=== PATIENT | male | born 1955 | race Caucasian/White ===

== ENCOUNTER 2024-09-23 19:46 | Inpatient (IN) | payer BC, MEDICARE ==
[2024-09-23 21:56] VITALS: BMI 30.2
[2024-09-23] MEDS ORDERED: Senokot S 8.6-50 MG TAB PO PRN (22:51)
[2024-09-23] MEDS ORDERED: Acetaminophen 325 MG TAB PO PRN (22:51)
[2024-09-23] MEDS ORDERED: cefTRIAXone Sodium 1 MG in Syringe 0 ML IVPB SCH (23:00)
[2024-09-23] MEDS: metFORMIN 500 MG TAB PO SCH (23:24)
[2024-09-23] MEDS: Losartan 50 MG TAB PO SCH (23:25)
[2024-09-23] MEDS: rOPINIRole HCl 1 MG TAB PO SCH (23:25)
[2024-09-23] MEDS: cefTRIAXone\\ROCEPHIN 1 GM in Sodium Chloride 0.9% 100 ML IVPB SCH (23:25)
[2024-09-23] MEDS: Nicotine 21 MG PATCH TD SCH (23:26)
[2024-09-23] MEDS ORDERED: Ventolin HFA Inhaler 60 PUFF INHALER INH PRN (23:36)
[2024-09-24] MEDS: Azithromycin 500 MG in Sodium Chloride 0.9% 250 ML 250 ML IVPB SCH (00:34)
[2024-09-24] MEDS: Arformoterol 15 MCG/2 ML NEB NEB SCH ×2 (00:55→07:32)
[2024-09-24] MEDS: Ipratropium/Albuterol 3 ML NEB NEB SCH (01:30)
[2024-09-24] MEDS ORDERED: Glucagon 1 MG/ML KIT IM PRN (02:41)
[2024-09-24] MEDS ORDERED: Dextrose 50% Abboject 50 ML SYRINGE SLOW IVP PRN (02:41)
[2024-09-24] MEDS ORDERED: Dextrose 5% in Water 1,000 ML IV PRN (02:41)
[2024-09-24 05:39] LABS: Anion Gap 17 mmol/L (10-20); BUN (Urea Nitrogen) 17 mg/dL (8.4-25.7); Calc. Creatinine Clearance 95 mL/min (70-130); Calcium 9.4 mg/dL (7.8-10.44); Carbon Dioxide 25 mmol/L (23-31); Chloride 99 mmol/L (98-107); Estimated GFR 80; Glucose 82 mg/dL (80-115); Magnesium 1.9 mg/dL (1.6-2.6); Potassium 4.3 mmol/L (3.5-5.1); Sodium 137 mmol/L (136-145)
[2024-09-24 05:54] LABS: #Basophils 0.02 10x3/uL (0.0-0.2); #Eosinophils 0.03 10x3/uL (0.0-0.5); #Monocytes 0.56 10x3/uL (0.0-1.1); #Neutrophils 5.79 10x3/uL (1.5-8.4); %Basophils 0.3 % (0.0-2.0); %Eosinophils 0.4 % (0.0-6.0); %Lymphocytes 9.9 % (18.0-47.0); %Monocytes 7.8 % (0.0-10.0); Hematocrit 41.3 % (38.8-50.0); Hemoglobin 14.5 g/dL (13.5-17.5); Mean Corpuscular HGB CONC 35.1 g/dL (32.0-36.0); Mean Corpuscular Hemoglobin 33.3 pg (27.0-33.0); Mean Corpuscular Volume 94.9 fL (81.2-95.1); Mean Platelet Volume 9.5 fL (7.4-10.4); Platelet Count 150 10x3/uL (150-450); RBC Distribution Width 13.8 % (11.5-14.5); Red Blood Cell (RBC) Count 4.35 10x6/uL (4.32-5.72)
[2024-09-24] MEDS: Budesonide 0.5 MG/2 ML NEB INH SCH (07:33)
[2024-09-24] MEDS: Azithromycin 500 MG in Syringe 0 ML IVPB SCH (07:37)
[2024-09-24] MEDS: cefTRIAXone Sodium 1,000 MG in Syringe 0 ML IVPB SCH (07:37)
[2024-09-24] MEDS: Enoxaparin 40 MG (0.4 mL) SYRINGE SC SCH (08:35)
[2024-09-24] MEDS: Gemfibrozil 600 MG TAB PO SCH (08:37)
[2024-09-24] MEDS: NIFEdipine XL 60 MG ER.TAB PO SCH (08:37)
[2024-09-24] MEDS: metFORMIN 500 MG TAB PO SCH (08:38)
[2024-09-24] MEDS: guaiFENesin ER 600 MG TAB PO SCH (08:38)
[2024-09-24] MEDS: Fish Oil 1,000 MG CAP PO SCH (08:39)
[2024-09-24] MEDS: cefTRIAXone\\ROCEPHIN 2 GM in Sodium Chloride 0.9% 100 ML IVPB SCH (08:40)
[2024-09-24] MEDS: predniSONE 20 MG TAB PO SCH (08:46)
[2024-09-24] MEDS: methylPREDNISolone Sod Succ 40 MG VIAL IVP SCH (12:44)
[2024-09-24] MEDS: rOPINIRole HCl 1 MG TAB PO SCH (21:36)
[2024-09-24] MEDS: Atorvastatin Calcium 20 MG TAB PO SCH (21:36)
[2024-09-24] MEDS: Cholecalciferol (Vitamin D3) 400 UNITS TAB PO SCH (21:36)
[2024-09-24] MEDS: Losartan 50 MG TAB PO SCH (21:37)
[2024-09-24] MEDS: Nicotine 21 MG PATCH TD SCH (21:37)
[2024-09-24] MEDS: Insulin Lispro 100 UNIT/ML 10 ML VIAL SC PRN (22:28)
[2024-09-26 07:55] VITALS: BP 151/65; TEMP 97.5
== END 2024-09-26 10:45 | disposition home or self-care (01) | DRG 189 ==
LOC: CSHTELE 21:31 → UNDOADMIN 21:31 → CSHTELE 09-24 10:21
PROVIDERS: ADMIT Internal Medicine; ATTEND Internal Medicine
DX: J96.01 Acute respiratory failure with hypoxia (principal); J44.1 Chronic obstructive pulmonary disease with (acute) exacerbation; E11.9 Type 2 diabetes mellitus without complications; I10 Essential (primary) hypertension; E78.5 Hyperlipidemia, unspecified; F17.200 Nicotine dependence, unspecified, uncomplicated; Z85.828 Personal history of other malignant neoplasm of skin
CPT/HCPCS: 36415; 36416; 80048; 83735; 85025; 87070; 87077; 87186; 87205; 94640; 94760; J0456; J0696; J1650; J1815; J2919; J7050; J7512; J7620; J7626